=== PATIENT | female | born 1985 | race Caucasian/White ===

== ENCOUNTER 2019-08-07 01:58 | Day surgery (SDC) | payer BC, SELFPAY ==
[2019-08-06 14:53] VITALS: BMI 25.0
--- NOTE | 2019-08-07 09:21 | P.HP_ITS ---
H&P: HPI History of Present Illness Chief complaint: Missed AB Narrative: 33 y/o at 10w4d gestation based on LMP 05/25/19. We could not auscultate FHR in the office yesterday, and ultrasound exam showed rendon IUP with CRL c/w 8w3d, with no cardiac movement. No bleeding or cramping. Review of Systems Review of Systems: All systems reviewed & are unremarkable except as noted in HPI and below PMFSH Family History Family History Father Family history of lung cancer Other Asthma Social History Social History Smoking status: Never smoker Alcohol intake: never Meds Home Medications and Allergies Home Medications Medication Instructions Recorded Confirmed Type multivitamin 1 tablet PO DAILY 08/06/19 08/06/19 History Allergies Allergy/AdvReac Type Severity Reaction Status Date / Time No Known Allergies Allergy Unknown Unverified 08/06/19 14:46 Exam Const: Orientation/consciousness: patient oriented x3 Other: Well- developed, well-nourished female in no acute distress. Neck: Thyroid: thyroid normal Lymphatic: no lymphadenopathy noted (in neck, axilla or inguinal nodes) Resp: Effort & Inspection: normal respiratory effort Auscultation: clear to auscultation bilaterally Cardio: Rate: regular rate Rhythm: regular rhythm Heart sounds: S1 normal heart sound present and S2 normal heart sound present GI: Other: ABD: Soft, nontender, nondistended. No guarding or rebound tenderness. No hepatosplenomegaly. : General: Yes no CVA tenderness Other: External genitalia: normal female hair distribution, without lesion. Urethral meatus: no lesion, non prolapsed. Bladder: no mass, nontender Vagina: well-estrogenized, without lesion or discharge. No cystocele or rectocele. Cervix: no lesion or discharge. Uterus: small, anteverted, freely mobile, nontender Adnexa: no mass or tenderness. Anus/perineum: no lesions, nontender Back/Spine/Pelvis: Back: no CVA tenderness Skin: General skin exam: normal color and no rashes or lesions noted Neuro: General: patient oriented x3 Extrem: Other: Extremities: nontender with no edema Psych: Mental Status: mental status grossly normal Affect: normal affect Assessment and Plan Assessment and plan (1) Missed : Code(s): O02.1 - Missed Status: Acute Assessment and Plan: I offered her expectant management vs suction D&C. She prefers the latter. She understands risks of surgery to include risks of anesthesia, risks of pain, infection, bleeding, blood products, thromboembolic phenomena and damage to adjacent structures such as bowel, bladder, ureters, blood vessels and nerves. She understands all these risks and elects to proceed with surgery.
[2019-08-07 10:46] VITALS: BP 102/59; PULSE 77; RESP 18; TEMP 36.6; O2SAT 100
[2019-08-07] MEDS: LACTATED RINGERS 1,000 ML 30 ML IV CONT (10:50)
--- NOTE | 2019-08-07 11:18 | P.PNAN_ITS ---
Anes - Initial Pre Proc Eval Procedure: Operation Date: 08/07/19 12:00 Proposed Procedures p Suction Dilation And Curettage - Esdras Soto MD Date/Time: 08/07/19 11:18 Surgeon: Esdras Soto MD Pre Op Diagnosis: Missed AB Patient Data Age: 33 Gender: F Height: 5 ft 6 in Weight: 70.5 kg Allergies Allergy/AdvReac Type Severity Reaction Status Date / Time No Known Allergies Allergy Unknown Unverified 08/07/19 10:57 Home Medications Medication Instructions Recorded Confirmed Type multivitamin 1 tablet PO DAILY 08/06/19 08/07/19 History Patient hx anesthesia problems: none Family hx anesthesia problems: none [facility] Past Medical History Medical History (Updated 08/07/19 @ 11:18 by Ridge Wilson MD) Asthma Family History Family History Father Family history of lung cancer Other Asthma Social History Social History Smoking status: Never smoker Alcohol intake: never Anes - Eval Final PreProcedure Day of Procedure 08/07/19 11:18 Patient weight: normal Heart: regular rate and rhythm Lungs: clear to auscultation Airway: Mallampati scale class 1 Neurological: alert and oriented Last oral intake: >/= 8 hours ASA classification: II Emergent: no Anesthetic plan: proceed Anesthesia type and monitoring: general GIVS and standard monitoring Informed Consent: The patient's anesthetic plan and its attendant risks and benefits were discussed with the patient/family/POA. Questions were solicited and answers provided to the satisfaction of the patient/family/POA.
[2019-08-07] MEDS: KETOROLAC 30 MG/ML VIAL (*BKC) IV PUSH (12:19)
--- NOTE | 2019-08-07 12:23 | PM.PROC ---
Procedure Note - Detailed Date of procedure: 08/07/19 Pre-op diagnosis: Missed AB Post-op diagnosis: same Procedure performed: Dilation and suction D&C Description of procedure: The patient was taken to the operating room where she was prepared and draped in the usual sterile fashion in the dorsal lithotomy position. The bladder was drained with a red rubber catheter. A sterile speculum was placed into the vagina. The anterior lip of the cervix was grasped with a single-tooth tenaculum. Ten mL of 1% lidocaine was administered in a paracervical block. The cervix was gently dilated using Hegar dilators until an 8mm dilator could be passed. The 8mm curved tip suction curette was advanced. Suction curettage was performed and products of conception were aspirated. Sharp curettage was then performed until a good uterine cry was noted. A final pass with the suction curette was made. The tenaculum was removed. Hemostasis was excellent. Sponge, lap, needle and instrument counts were correct. The patient was taken to the recovery room in stable condition. I was present and scrubbed for the entire procedure. Implants: None Anesthesia: MAC and local (1% lidocaine paracervical block) Surgeon: Esdras Soto MD Estimated blood loss (mL): 200 Urine output (mL): 200 Drains: No Packing: No Pathology: yes (endometrial curettings) Complications: None Condition: stable Disposition: PACU Findings: Products of conception aspirated.
--- NOTE | 2019-08-07 12:23 | SUR.PREOP ---
ATTEMPTED TO CONTACT TO INFORM ABOUT PT GOING TO SURGERY
[2019-08-07 12:26] VITALS: BP 100/56; PULSE 74; RESP 16
[2019-08-07 12:55] VITALS: BP 102/66; PULSE 84; RESP 20
[2019-08-07 13:25] VITALS: BP 103/60; PULSE 86; RESP 20
== END 2019-08-07 13:30 | disposition home or self-care (01) ==
PROVIDERS: Visit Provider Obstetrics & Gynecology
PROC: (CPT 59820; principal; 2019-08-07 12:00)
DX: O02.1 Missed abortion (principal)
CPT/HCPCS: 59820; 36415; 85461; 88305; A9270; J1885; J2250; J2405; J2704; J3010; J7120

== ENCOUNTER 2020-09-19 09:13 | Inpatient (IN) | payer BC, SELFPAY ==
[2020-09-19] VITALS (46 sets, daily range): BP systolic 72–151; BP diastolic 49–114; PULSE 83–139; RESP 18; TEMP 36.4–36.9; O2SAT 97–100; BMI 35.6
--- NOTE | 2020-09-19 09:13 | LDADM ---
This patient, Desire Keys, was admitted to Labor/Delivery/Recovery 106 on 09/19/20 at 09:13. Plans for labor, pain management and were discussed with patient. Patient/family oriented to hospital policies and general routines including ID bracelet, bed and alarms, visiting hours, pain management, procedures, bathroom and other care routines, personal items, smoking policy, room service/diet and guest tray routines, security routines, and visiting hours. Patient/Family are encouraged to report perceived risks to care and to ask questions if they do not understand what they are told or what they should do. See OBIX for further documentation.
[2020-09-19 09:48] LABS: Basophils Absolute Auto 0.1 K/mm3 (0.0-0.1); Basophils Percent Auto 0.3 % (0.2-1.2); Eosinophils Absolute Auto 0.1 K/mm3 (0-0.3); Eosinophils Percent Auto 0.8 % (0-4.4); Hematocrit 38.1 % (37.0-47.0); Hemoglobin 12.5 g/dL (12.0-15.0); Immature Granulocyte Percent A 1.2 % (0-0.5); Lymphocytes Absolute Auto 1.56 K/mm3 (0.9-3.2); Mean Corpuscular HGB Conc 32.8 g/dl (32-36); Mean Corpuscular Hemoglobin 30.9 pg (26-34); Mean Corpuscular Volume 94.1 fl (80-100); Mean Platelet Volume 10.9 fl (7.4-10.4); Monocytes Absolute Auto 1.1 K/mm3 (0.1-0.6); Monocytes Percent Auto 6.3 % (2.6-8.5); Neutrophils Absolute Auto 14.2 K/mm3 (1.3-6.7); Neutrophils Percent Auto 82.4 % (45.5-73.1); Platelet Count Result 168 k/mm3 (150-375); Red Blood Count 4.05 M/mm3 (4.2-5.4); Red Cell Distribution Width 13.2 % (11.5-14.5); White Blood Count 17.3 K/mm3 (4.5-10.0)
--- NOTE | 2020-09-19 09:50 | WPDANESEPP ---
Anes - Eval Pre Procedure Procedure: labor epidural Date/Time: 09/19/20 09:50 Surgeon: karely Pre Op Diagnosis: Contractions Patient Data Age: 34 Gender: F Height: 1.68 m Weight: 100 kg Last Vital Signs Pulse Ox 100 09/19/20 09:49 Allergies Allergy/AdvReac Type Severity Reaction Status Date / Time No Known Allergies Allergy Unknown Unverified 08/07/19 10:57 Home Medications Medication Instructions Recorded Confirmed Type PNV cmb#95-ferrous fumarate-FA 1 tablet PO DAILY 08/19/20 08/19/20 History [] fluoxetine 20 mg PO DAILY 08/19/20 08/19/20 History Laboratory Tests 09/19/20 09/19/20 09/19/20 09:42 09:42 09:42 WBC Pending RBC Pending Hgb Pending Hct Pending MCV Pending MCH Pending MCHC Pending RDW Pending Plt Count Pending MPV Pending Immature Gran % (Auto) Pending Neut % (Auto) Pending Lymph % (Auto) Pending [place] % (Auto) Pending Eos % (Auto) Pending Baso % (Auto) Pending Lymph # (Auto) Pending [place] # (Auto) Pending Eos # (Auto) Pending Baso # (Auto) Pending Abs Immat Gran (auto) Pending Absolute Neuts (auto) Pending Absolute Nucleated RBC Pending Nucleated RBC % Pending RPR Pending Blood Type Pending Antibody Screen Pending Patient hx anesthesia problems: none Family hx anesthesia problems: none PMFSH Past Medical History Medical History (Updated 08/07/19 @ 11:18 by Ridge Wilson MD) Asthma Family History Family History Father Family history of lung cancer Other Asthma Social History Social History Smoking status: Never smoker Alcohol intake: never Substance use: never Gender identity (if verbalized by the patient): Female Spiritual care concerns: No Exam Day of Procedure 09/19/20 09:50
[2020-09-19] MEDS: LACTATED RINGERS 1,000 ML 125 ML IV CONT (10:09)
--- NOTE | 2020-09-19 10:53 | PM.IMHP ---
H&P: HPI History of Present Illness Date/Time: 09/19/20 10:53 This is a 34-year-old 8 para 3043 whose last menstrual period was 12/09/2019, EDC is 09/14/2020, presents at 40 and half weeks gestation in active labor. The is apparently been uncomplicated with negative group B strep Chief Complaint: term in labor Review of Systems Review of Systems: All systems reviewed & are unremarkable except as noted in HPI and below PMFSH Past Medical History Medical History Asthma Family History Family History Father Family history of lung cancer Other Asthma Social History Social History Smoking status: Never smoker Alcohol intake: never Substance use: never Gender identity (if verbalized by the patient): Female Spiritual care concerns: No Meds Home Medications and Allergies Home Medications Medication Instructions Recorded Confirmed Type PNV cmb#95-ferrous fumarate-FA 1 tablet PO DAILY 08/19/20 09/19/20 History [] fluoxetine 20 mg PO DAILY 08/19/20 09/19/20 History Allergies Allergy/AdvReac Type Severity Reaction Status Date / Time No Known Allergies Allergy Unknown Unverified 08/07/19 10:57 Vital Signs Vital Signs - 24 hr 09/19/20 09:49 09/19/20 09:54 09/19/20 09:55 Temperature Pulse Rate 97 Blood Pressure 141/114 H 126/71 Pulse Oximetry 100 100 09/19/20 09:59 09/19/20 10:01 09/19/20 10:04 Temperature Pulse Rate 84 85 Blood Pressure 121/63 124/66 Pulse Oximetry 100 100 09/19/20 10:06 09/19/20 10:07 09/19/20 10:09 Temperature Pulse Rate 92 86 Blood Pressure 128/75 130/67 Pulse Oximetry 100 09/19/20 10:10 09/19/20 10:13 09/19/20 10:14 Temperature Pulse Rate 86 92 Blood Pressure 116/70 87/66 L Pulse Oximetry 100 09/19/20 10:16 09/19/20 10:19 09/19/20 10:22 Temperature Pulse Rate 96 87 92 Blood Pressure 111/70 124/66 124/71 Pulse Oximetry 98 09/19/20 10:24 09/19/20 10:25 09/19/20 10:28 Temperature Pulse Rate 91 93 Blood Pressure 120/70 119/71 Pulse Oximetry 99 09/19/20 10:29 09/19/20 10:31 09/19/20 10:34 Temperature Pulse Rate 94 97 Blood Pressure 122/73 93/54 L Pulse Oximetry 100 100 09/19/20 10:37 09/19/20 10:43 09/19/20 10:44 Temperature 98 F Pulse Rate 97 92 Blood Pressure 72/53 L 112/64 Pulse Oximetry Exam Const: General: no acute distress Eyes: General: appearance normal, both eyes and all related structures Neck: Neck: supple and no JVD Thyroid: thyroid normal Resp: Effort & Inspection: normal respiratory effort Auscultation: clear to auscultation bilaterally Cardio: Rate: regular rate Rhythm: regular rhythm GI: Inspection: non-distended GI Palp: Yes Soft to palpation, No Tenderness to palpation present (GI) and No Guarding due to palpation present (GI) Auscultation: normal bowel sounds : External Female Exam: normal external appearance Speculum Exam - Vagina: normal appearance of the vagina Speculum Exam - Cervix: normal appearance of the cervix ( cervix is 6/ 100%/ -1. AROM light mac. FHTs reassuring) Skin: General skin exam: no rashes or lesions noted Extrem: General: normal to inspection and no edema Psych: Mental Status: mental status grossly normal Affect: normal affect H&P: Results Labs Labs: Short CBC 09/19/20 Range/Units 09:42 WBC 17.3 H (4.5-10.0) K/mm3 Hgb 12.5 (12.0-15.0) g/dL Hct 38.1 (37.0-47.0) % Plt Count 168 (150-375) k/mm3 Assessment and Plan Additional Plan impression: Term in active labor Plan: Spontaneous vaginal delivery is expected
--- NOTE | 2020-09-19 16:14 | PM.OBPRVD ---
OB - Delivery Note Procedure Delivery date: 09/19/20 Intrapartal events: None Induction method: none Delivery monitor: external FHT Route of delivery: Episiotomy description: None Laceration Description: Perineal - 1st Degree Delivery repair: vicryl Specimen: No Quantitative Blood Loss (ml): 58 Anesthesia type: Epidural Disposition: floor Baby Date of : 09/19/20 Time of : 16:02 Weeks of gestation at delivery: 40 gender: Male Weight (pounds): 8 Weight (ounces): 11 presentation: vertex position: Right Occiput Anterior Placenta delivery description: Spontaneous cord vessel description: 3 Vessels score one minute: 9 score five minutes: 9
[2020-09-19] MEDS: OXYTOCIN 30 UNITS/NS 500 ML 30 UNITS/500 ML BAG 125 UNITS IV CONT (16:44)
[2020-09-19] MEDS: IBUPROFEN 600 MG TABLET PO (17:06)
[2020-09-19] MEDS: LANOLIN (LANSINOH) 7.5 GM CREAM 1 APPLIC TOPICAL (18:24)
[2020-09-19] MEDS: ACETAMINOPHEN 325 MG TABLET 650 MG PO (19:08)
[2020-09-19] MEDS: WITCH HAZEL 40 PADS 1 PAD TOPICAL (19:08)
[2020-09-19] MEDS: BENZOCAINE 20% AER SPR (*SP) 56 GM CAN 1 SPRAY TOPICAL (19:08)
[2020-09-19] MEDS: HYDROcodone/acetaminophen (*CRX) 5-325 MG TABLET 1 TAB PO (20:35)
[2020-09-20] MEDS: HYDROcodone/acetaminophen (*CRX) 5-325 MG TABLET 1 TAB PO ×4 (04:17→18:06)
[2020-09-20] MEDS: IBUPROFEN 600 MG TABLET PO ×2 (04:17→13:17)
[2020-09-20 05:10] LABS: Hematocrit 34.1 % (37.0-47.0); Hemoglobin 10.9 g/dL (12.0-15.0)
--- NOTE | 2020-09-20 07:34 | WPDANLDPN2 ---
Anes-Prog Note L&D Date/Time: 09/20/20 07:34 Comfortable throughout: labor and delivery Neuraxial method: epidural Epidural/Spinal procedure site: clean & non-tender Neuro status: Neuro function grossly intact. Cardiovascular status: normal Respiratory status: normal Airway patency: baseline Mental status: baseline Post-Op hydration status: normal Vital Signs: Last Vital Signs Temp 36.4 C 09/19/20 23:50 Pulse 83 09/19/20 23:50 Resp 18 09/19/20 23:50 BP 103/56 L 09/19/20 23:50 Pulse Ox 97 09/19/20 23:50 Pain score (VAS): 0 I/O: Intake & Output 09/19/20 09/19/20 09/20/20 15:59 23:59 07:59 Output Total 127 Balance -127 Post-procedural complaints: none Patient feedback: Patient satisfied with anesthetic care.
[2020-09-20] MEDS: DOCUSATE SODIUM 100 MG CAPSULE PO (07:48)
[2020-09-20] MEDS: MULTIVIT/MIN/PREN/FOL AC/IRON TABLET 1 TAB PO (07:48)
[2020-09-20] MEDS: FLUoxetine HCL 20 MG CAPSULE PO (07:49)
[2020-09-20 08:00] VITALS: BP 92/49; PULSE 65; RESP 18; TEMP 36.4
[2020-09-20 08:05] LABS: Rapid Plasma Reagin Non-Reactive (NonReactive)
[2020-09-20 12:02] VITALS: BP 101/59; PULSE 83; RESP 16; TEMP 36.5; O2SAT 98
--- NOTE | 2020-09-20 12:53 | PM.OBPNVD ---
OB - PN: Subj Subjective Date/time seen: 09/20/20 12:53 Narrative: Pain OK. Would like a circ for son. Then would like to go home. OB - PN: Obj Data Labs CBC & Chem 7: 09/20/20 04:22 Labs: Laboratory Results - last 24 hr 09/19/20 09/20/20 09:42 04:22 Hgb 10.9 L Hct 34.1 L RPR Non-reactive OB - PN A/P Plan Comments: A: PPD#1, doing well. P: Reviewed circ. Home to f/u 6 weeks. Exam Psych: Other: AVSS ABD soft, nontender, fundus firm EXT nontender
--- NOTE | 2020-09-20 12:54 | PM.OBDSVD ---
DS: Admitting Diagnosis Admitting Diagnosis Labor at term DS: Discharge Diagnosis Discharge Diagnosis (1) (normal spontaneous vaginal delivery): Code(s): O80 - Encounter for full-term uncomplicated delivery Status: Acute OB - DS: Summary OB Procedures : None OB Procedures Intrapartum: Spontaneous Vag Delivery OB Procedures: : None DS: Data Data Completed and Pending Labs on day of discharge: Labs from last 24 hours 09/20/20 09/19/20 04:22 09:42 Hgb 10.9 L Hct 34.1 L RPR Non-reactive Discharge Plan Discharge Attending physician on discharge: Esdras Soto Discharging Clinician: Esdras Soto Patient Disposition: Home, Self-Care Activity: pelvic rest Diet: regular Discharge Instructions: Call or return if temperature above 100.4? F, increased abdominal pain, increased vaginal bleeding or any new problems. Stand Alone Forms: General Discharge Information Follow-up/Referrals: Esdars Soto MD [Physician] - 6 Weeks Discharge Medications: New ibuprofen 600 mg tablet 600 mg PO Q6H PRN (Reason: cramps) Qty: 30 RF: 0 Continued fluoxetine 20 mg Tablet 20 mg PO DAILY RF: 0 PNV cmb#95-ferrous fumarate-FA [] 28 mg iron- 800 mcg Tablet 1 tablet PO DAILY RF: 0 Date of admission: 09/19/20 09:13 Primary Care Provider: EliseZach Admitting Provider: Esdras Soto Attending physician on admission: Esdras Soto Condition: Stable
--- NOTE | 2020-09-20 14:00 | PC.NURSE ---
Mother called out for assist with feeding, reporting is sleepy and has some tenderness with right nipple. Infant is able to freely thrust tongue past gum ridge and flange both lips. Infant keeps bottom lip rolled in. Skin is intact on both nipples, no redness and bruising noted. Reviewed feeding cues, frequencies, duration of feedings, feeding elimination flow sheet, and signs of adequate intake. Demonstrated stimulation techniques to wake for feeding. Assisted with to breast. Reviewed positioning/alignment in football, holding breast in ?C? hold and guided asymmetrical latch on. Discussed rational for each. Infant able to latch correctly. Infant nursed eagerly, with steady draws and frequent swallowing noted. Suggested mother stimulate while feeding to increase stimulate, increase intake and to assist with maintaining deep latch. Infant responds to stimulation with increased nursing. Reviewed signs of a correct latch, effective nursing and suck swallow ratio. Infant would slip to shallow latch, with pausing, mother reports tenderness. Demonstrated how to adjust latch more deeply while feeding. Mother reports she can feel change in latch and has no tenderness. Nipple care reviewed of lanolin after feedings, warm compresses as needed. Mother is wishing 24 hour discharge. Mother able to independently latch with appropriate positioning/alignment. She has slight tenderness to right nipple which is improving with deep latch. She is feeding as required and waking to feed if needed. Infant is feeding as required with several effective feedings since , and is currently meeting outcomes for weight, output, jaundice and feeding frequencies. Mother states she feels confident to continue effective at home. Reviewed transition to breast milk, signs of adequate intake, and engorgement/relief. Instructed to call ICP if intake/output less than required. Reviewed regular medications mother is taking. Information provided per Tess. Reviewed community resources on the [facility] website and in the Mom/Baby guide. Information on outpatient services provided. Mother has no further questions at this time.
[2020-09-23 10:22] VITALS: BP 114/59; PULSE 89; RESP 20; TEMP 36.9; O2SAT 100
== END 2020-09-20 18:22 | disposition home or self-care (01) | DRG 807 ==
LOC: ANHLDR 09:18 → ANHOB2 20:21
PROVIDERS: Admitting Provider Obstetrics & Gynecology; PCP Family Medicine; Visit Provider Obstetrics & Gynecology
DX: O70.0 First degree perineal laceration during delivery (principal); Z37.0 Single live birth; O77.0 Labor and delivery complicated by meconium in amniotic fluid; Z3A.40 40 weeks gestation of pregnancy
CPT/HCPCS: 36415; 85014; 85018; 85025; 86592; 86850; 86900; 86901; A9270; J2590; J2795; J7120

== ENCOUNTER 2023-12-05 02:00 | Day surgery (SDC) | payer BC, SELFPAY ==
[2023-11-26 15:15] VITALS: BMI 23.4
--- NOTE | 2023-11-26 15:21 | PC.NURSE ---
Report to the Outpatient Waiting Room, entrance under the green pavilion located off [facility], at time _1145_ on date _[id number]_. Planned Procedure Time: _145pm_.? Time changes happen often and if your time is changed the preop area will call you the afternoon before. - You and your visitor will be asked to self-screen and do not enter if you have any COVID symptoms. Please call surgeon if you need to reschedule. - A mask is optional within the hospital at this time. Patients may have clear liquids (water, carbonated beverages, clear teas, apple juice) until 3 hours prior to surgery with a maximum of 20 ounces. - No food from midnight until time of surgery and no smoking Take only the following medications with a SIP of water on the morning of surgery: ___Albuterol inhaler if needed. DO NOT STOP ANY OF YOUR OTHER PRESCRIPTION MEDICATIONS PRIOR TO SURGERY EXCEPT THE FOLLOWING Medications to discontinue per physician ___None Please no make-up, nail irish, hairspray, perfume, deodorant, or body powder the day of surgery.? No jewelry (including any body piercings) or valuables the day of surgery, leave them at home.? Please take a shower or bath the night before, or the morning of, surgery with an antibacterial soap.? Wear comfortable, loose fitting clothing.? - Jewelry must be removed prior to entering the operating room.? Rings and piercings that are not removed may be cut off. - The hospital will not accept responsibility for valuables.? - Please leave all valuables, including medications, at home the day of surgery. If you are going home after surgery, a licensed class a truck driver must drive you home.? - NO public transportation without another adult if you receive anesthesia. - We recommend that an adult stay with you for 24 hours following discharge. - We also recommend that you do not drive, make important decision, drink alcoholic beverages, or take any drugs that were not prescribed by your health care provider for at least 24 hours after your discharge time. Follow any additional instructions given to you from your surgeon. Telephone instructions given to __Desire__and asked if any additional questions and then verbalized understanding. Patient advised to call surgeon office or pre surgery nurse liaison [phone] if any additional questions.
[2023-12-05] MEDS: ACETAMINOPHEN 500 MG TABLET 1000 MG PO (12:00)
--- NOTE | 2023-12-05 12:09 | PM.IMHP ---
H&P: HPI History of Present Illness Date/Time: 12/05/23 12:09 Chief Complaint: Irregular vaginal bleeding. Narrative: 38 y/o with intermenstrual bleeding. Ultrasound exam shows a likely endometrial polyp measuring 2.1 cm. Bilateral adnexa are unremarkable. Review of Systems Review of Systems: All systems reviewed & are unremarkable except as noted in HPI and below PMFSH Past Medical History Medical History Asthma Family History Family History Father Family history of lung cancer Other Asthma Social History Social History Smoking status: Never smoker Alcohol intake: never Substance use: never Living arrangements: with family Gender identity (if verbalized by the patient): Female Spiritual care concerns: No Meds Home Medications and Allergies Home Medications Medication Instructions Recorded Confirmed Type albuterol sulfate 90 mcg/actuation 2 inh inhalation QID PRN Dyspnea 11/26/23 11/26/23 History aerosol inhaler Allergies Allergy/AdvReac Type Severity Reaction Status Date / Time No Known Allergies Allergy Unknown Verified 11/26/23 16:00 Exam Const: Orientation/consciousness: patient oriented x3 Other: Well-developed, well-nourished female in no acute distress. Neck: Thyroid: thyroid normal Lymphatic: no lymphadenopathy noted (in neck, axilla or inguinal nodes) Resp: Effort & Inspection: normal respiratory effort Auscultation: clear to auscultation bilaterally Cardio: Rate: regular rate Rhythm: regular rhythm Heart sounds: S1 normal heart sound present and S2 normal heart sound present GI: Other: ABD: Soft, nontender, nondistended. No guarding or rebound tenderness. No hepatosplenomegaly. : General: Yes no CVA tenderness Other: External genitalia: normal female hair distribution, without lesion. Urethral meatus: no lesion, non prolapsed. Bladder: no mass, nontender Vagina: well-estrogenized, without lesion or discharge. No cystocele or rectocele. Cervix: no lesion or discharge. Uterus: small, anteverted, freely mobile, nontender Adnexa: no mass or tenderness. Anus/perineum: no lesions, nontender Back/Spine/Pelvis: Back: no CVA tenderness Skin: General skin exam: normal color and no rashes or lesions noted Neuro: General: patient oriented x3 Extrem: Other: Extremities: nontender with no edema Psych: Mental Status: mental status grossly normal Affect: normal affect Assessment and Plan Assessment and plan (1) Metrorrhagia: Code(s): N92.1 - Excessive and frequent menstruation with irregular cycle Status: Acute Assessment and Plan: A: Likely endometrial polyp. P: Offered hysteroscopy with dilation and sharp curettage and endometrial polypectomy. She understands risks of surgery to include risks of anesthesia, risks of pain, infection, bleeding, blood products, thromboembolic phenomena and damage to adjacent structures such as bowel, bladder, ureters, blood vessels and nerves. She understands all these risks and elects to proceed with surgery. (2) Abnormal pelvic ultrasound: Code(s): R93.89 - Abnormal findings on diagnostic imaging of other specified body structures Status: Acute
[2023-12-05] MEDS: LACTATED RINGERS 1,000 ML 30 ML IV CONT (12:15)
[2023-12-05 12:30] VITALS: BP 99/63; PULSE 70; RESP 16; TEMP 36.3; O2SAT 100
--- NOTE | 2023-12-05 12:38 | P.PNAN_ITS ---
Anes - Initial Pre Proc Eval Procedure: Operation Date: 12/05/23 13:45 Proposed Procedures p Hysteroscopy Dilation and Curettage with Polypectomy - Esdras Soto MD Date/Time: 12/05/23 12:38 Surgeon: Esdras Soto MD Pre Op Diagnosis: Irg Vag Bleeding, Uterine Polyps Patient Data Age: 38 Gender: F Height: 1.68 m Weight: 65.9 kg Allergies Allergy/AdvReac Type Severity Reaction Status Date / Time No Known Allergies Allergy Unknown Verified 11/26/23 16:00 Home Medications Medication Instructions Recorded Confirmed Type albuterol sulfate 90 mcg/actuation 2 inh inhalation QID PRN Dyspnea 11/26/23 11/26/23 History aerosol inhaler Patient hx anesthesia problems: none Family hx anesthesia problems: none Results Review: All pre-operative results and documents have been reviewed as part of the pre- operative evaluation. [facility] Past Medical History Medical History Asthma Family History Family History Father Family history of lung cancer Other Asthma Social History Social History Smoking status: Never smoker Alcohol intake: never Substance use: never Living arrangements: with family Gender identity (if verbalized by the patient): Female Spiritual care concerns: No Anes - Eval Final PreProcedure Day of Procedure 12/05/23 12:38 Patient weight: normal Heart: regular rate and rhythm Lungs: clear to auscultation Airway: Mallampati scale class 1 Neurological: alert and oriented Last oral intake: >/= 8 hours ASA classification: II Emergent: no Anesthetic plan: proceed Anesthesia type and monitoring: general GIVS and standard monitoring Results Review: All pre-operative results and documents have been reviewed as part of the pre- operative evaluation. Informed Consent: The patient's anesthetic plan and its attendant risks and benefits were discussed with the patient/family/POA. Questions were solicited and answers provided to the satisfaction of the patient/family/POA.
--- NOTE | 2023-12-05 13:06 | WPDHPUPDATE1 ---
History and Physical Update Update Date/Time: 12/05/23 13:06 History and Physical has been reviewed, including an updated exam of the patient. There are NO changes in the patient's condition. Risks, benefits, and alternatives have been discussed and questions answered. Patient agrees to proceed with procedure.
[2023-12-05] MEDS: LIDOCAINE HCL 1% PF INJ 5 ML VIAL 10 ML INFILTRATE (14:01)
--- NOTE | 2023-12-05 14:17 | W.PM.PROC2 ---
Procedure Note - Detailed Date of Procedure 12/05/23 Pre-op Diagnosis Irregular vaginal bleeding Endometrial mass Post-op Diagnosis Same Procedure Performed Hysteroscopy Endometrial polypectomy Dilation and sharp curettage Surgeon Esdras Soto MD Anesthesia MAC and Local (1% lidocaine) Findings Endometrial polyp at the fundus, just adjacent to the right tubal ostium. Both tubal ostia seen. Description of Procedure The patient was taken to the operating room where she was prepared and draped in the usual sterile fashion in the dorsal lithotomy position. The bladder was drained with a red rubber catheter. A sterile speculum was placed into the vagina. The anterior lip of the cervix was grasped with single-tooth tenaculum. Ten mL of 1% lidocaine was administered in a paracervical block. The cervix was then gently dilated using Hegar dilators until a 7 mm dilator could be passed. Hysteroscopy was performed using sterile saline as a distention medium. Findings are as noted above. The Aveta resector blade was advanced, and the endometrial polyp was easily excised completely. Sharp curettage was then performed, and endometrial curettings were collected on a Telfa pad and passed off to be sent to pathology. Hemostasis was excellent. Sponge, lap, needle and instrument counts were correct. The patient was awakened and taken to the recovery room in stable condition. I was present and scrubbed through the entire procedure. Implants None Estimated Blood Loss 10 Drains No Packing No Pathology Yes (Endometrial curettings and polyp) Complications None Condition Stable Disposition PACU
[2023-12-05 14:20] VITALS: BP 98/53; PULSE 68; RESP 14; O2SAT 98
[2023-12-05 14:50] VITALS: BP 98/60; PULSE 60; RESP 16
[2023-12-05 15:15] VITALS: BP 100/58; PULSE 53; RESP 16
[2023-12-05 15:38] LABS: BEDSIDEPREGUCG Negative (Negative)
== END 2023-12-05 15:29 | disposition home or self-care (01) ==
PROVIDERS: PCP Family Medicine; Visit Provider Obstetrics & Gynecology
PROC: 0U5B8ZZ Destruction of Endometrium, Via Natural or Artificial Opening Endoscopic (ICD-10-PCS; CPT 58563; principal; 2023-12-05 13:45)
DX: R93.89 Abnormal findings on diagnostic imaging of other specified body structures (principal); N84.0 Polyp of corpus uteri; G89.18 Other acute postprocedural pain; J45.909 Unspecified asthma, uncomplicated; Z79.51 Long term (current) use of inhaled steroids; Z80.1 Family history of malignant neoplasm of trachea, bronchus and lung
CPT/HCPCS: 58558; 88305; A9270; J1100; J1885; J2003; J2250; J2405; J2704; J3010; J7120